=== PATIENT | female | born 1965 ===

== ENCOUNTER 2019-06-06 15:30 | Emergency (ER) | payer MEDICARE, MEDICAID ==
[2019-06-06 16:07] VITALS: BP 127/61
--- NOTE | 2019-06-06 16:09 | UC ---
Lower Extremity/Ankle HPI - HPI Summary HPI Summary: 53 y/o female presents to the urgent care accompany by Caregiver Alyssia. Pt states she has Hx of Muscular Dystrophy and she usually walks w/ the help of a walker. On Saturday06/02/2019 she was trying to stand up at home from chair and started to walk w/ the walker when her RT foot gave out and she fell and twisted her foot. She though it was going to get better w/ the days since it has happened in the past, but since yesterday her foot is bruise and more swollen. She is unable to stand up due to pain. Pain at rest is 0/10, but w/ walking is 9/10. She denies any numbness or tingling sensation over her lower extremity, calf pain, dizziness, [place], SOB, chest pain, abdominal pain, N/V/D - History of Current Complaint Chief Complaint: UCLowerExtremity Stated Complaint: RIGHT FOOT INJURY Time Seen by Provider: 06/06/19 16:07 Hx Obtained From: Patient Hx Last Menstrual Period: none Onset/Duration: Gradual Onset, Lasting Days - 4 days, Still Present, Worse Since - yesterday w/ moderate swelling and unable to walk Severity Initially: Moderate Severity Currently: Moderate Pain Intensity: 9 - w/ walking. 0/10 at rest Pain Scale Used: 0-10 Numeric Aggravating Factor(s): Standing, Ambulation Alleviating Factor(s): Rest, OTC Meds - aspirin Able to Bear Weight: No - Risk Factors Gout Risk Factors: Negative DVT Risk Factors: Negative Septic Arthritis Risk Factor: Negative - Allergies/Home Medications Allergies/Adverse Reactions: Allergies Allergy/AdvReac Type Severity Reaction Status Date / Time No Known Allergies Allergy Verified 06/06/19 16:07 Home Medications: Home Medications Acetaminophen [Tylenol Extra Strength] 2 tab PO Q4H PRN 06/06/19 [History Confirmed 06/06/19] Aspirin [Aspirin EC] 81 mg PO DAILY 06/06/19 [History Confirmed 06/06/19] Escitalopram * [Lexapro 10 mg (NF)] 10 mg PO DAILY 06/06/19 [History Confirmed 06/06/19] LoraTADine TAB(NF) [Claritin 10 MG TAB(NF)] 10 mg PO DAILY PRN 06/06/19 [ History Confirmed 06/06/19] Omeprazole CAP (NF) [Prilosec CAP* 20 MG] 20 mg PO DAILY 06/06/19 [History Confirmed 06/06/19] PMH/Surg Hx/FS Hx/Imm Hx Previously Healthy: Yes Cardiovascular History: Myocardial Infarction - 2017 GI/ History: Gastroesophageal Reflux Other Neurological History: Muscular dystrophy Psychological History: Depression - Surgical History Surgical History: Yes Surgery Procedure, Year, and Place: cardiac cath 2017-pt reports was normal. 2 c-sections - Family History Known Family History: Positive: Unknown - Pt denies FMHX - Social History Occupation: Disabled Lives: With Family Alcohol Use: None Substance Use Type: None Smoking Status (MU): Never Smoked Tobacco Review of Systems All Other Systems Reviewed And Are Negative: Yes Constitutional: Positive: Negative Skin: Positive: Bruising - dorsal side of the RT foot s/p injury Eyes: Positive: Negative ENT: Positive: Negative Respiratory: Positive: Negative Cardiovascular: Positive: Negative Gastrointestinal: Positive: Negative Genitourinary: Positive: Negative Motor: Positive: Negative Neurovascular: Positive: Negative Musculoskeletal: Positive: Decreased ROM - RT foot and ankle, Other: - RT foot and ankle pain and swelling s/p injury Neurological: Positive: Negative Psychological: Positive: Negative Is Patient Immunocompromised?: No Physical Exam - Summary Physical Exam Summary: Vital Signs Reviewed: Yes General : well developed, well nourished female w/o any apparent distress sitting in her wheel chair Eyes: Positive: Conjunctiva Clear - PERRLA, EOMI ENT: Positive: Normal ENT inspection, Hearing grossly normal, Pharynx normal, TMs normal Neck: Positive: Supple, Nontender, No Lymphadenopathy Respiratory: Positive: Chest non-tender, Lungs clear, Normal breath sounds, No respiratory distress Cardiovascular: Positive: RRR, No Murmur, Pulses Normal Abdomen Description: Positive: Nontender, No Organomegaly, Soft. Negative: CVA Tenderness (R), CVA Tenderness (L) Bowel Sounds: Positive: Present Musculoskeletal: Positive: Strength Intact, ROM Intact, No Edema,RT Foot/Toes: Pt is able unable to bear weight due to pain. RT foot :No surface trauma, ecchymosis, erythema, lesions, ulcers or break in skin integrity. The R foot is without obvious asymmetry or deformity when compared to the L foot. No bony step -off, No tenderness to palpation over toes, point tenderness over the dorsal side of mid foot and base of the 4th and 5th metatarsal and sole at the same level w. moderate swelling, no tenderness of hindfoot, Decrease plantar/ dorsiflexion, inversion/eversion due to pain. Distal motor and neurovascular status are intact. RT Ankle: R ankle is without obvious asymmetry or deformity when compared to the L ankle. Pt can flex/ext, invert/shannan. No obvious surface trauma, ecchymosis, positive soft tissue swelling on laterla malleolus. No bony tenderness to palpation over the medial or lateral malleolus. good dorsalis pedis and posterior tibial pulses and sensation to light touch normal. Talar tilt test is negative for ligament laxity to valgus or varus stress. Negative anterior drawer. Peroneal nerve is intact with strong eversion and plantar flexion. Neurological Exam: Normal Psychological Exam: Normal Skin Exam: Normal Triage Information Reviewed: Yes Vital Signs: Initial Vital Signs Temp 98.1 F 06/06/19 15:57 Pulse 65 06/06/19 15:57 Resp 17 06/06/19 15:57 BP 127/61 06/06/19 15:57 Pulse Ox 95 06/06/19 15:57 Lower Extremity Course/Dx - Course Course Of Treatment: 53 y/o female presents to the urgent care accompany by Caregiver Alyssia. Pt states she has Hx of Muscular Dystrophy and she usually walks w/ the help of a walker. On Saturday06/02/2019 she was trying to stand up at home from chair and started to walk w/ the walker when her RT foot gave out and she fell and twisted her foot. She though it was going to get better w/ the days since it has happened in the past, but since yesterday her foot is bruise and more swollen. She is unable to stand up due to pain. Pain at rest is 0/10, but w/ walking is 9/10. She denies any numbness or tingling sensation over her lower extremity, calf pain, dizziness, [place], SOB, chest pain, abdominal pain, N/V/D. Hx obtained. RT foot and ankle X-ray ordered, REPORT AND IMPRESSION: #. Bone density appears markedly decreased throughout. Negative for fracture or dislocation at the ankle or foot. #. Degenerative or neuropathic arthropathy noted most prominent at the first metatarsal phalangeal joint moderate in severity. #. Diffuse soft tissue swelling. No subcutaneous emphysema or conspicuous foreign body evident as per radiologist. Probably Rt foot sprain. Pt 's foot immobilized with a CAM boot by the nurse. Pt Rx Ibuprofen PO as directed below. Advised RICE, and take Ibuprofen PO for pain, strongly advised to f/u with Orthopedic DR Edmonds for further evaluation and treatment due to her Hx of Muscular dystrophy. Also advised to f/u wl her PCP in 2-3 days for further management of possible osteoporosis and neuroapthic arthropathy. 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 - Differential Dx/Diagnosis Differential Diagnosis/HQI/PQRI: Arthritis, Contusion, Dislocation, Fracture ( Closed), Sprain, Strain, Tendonitis Provider Diagnosis: Injury of right foot including toes, Right foot sprain, Neuropathic arthropathy Discharge ED - Sign-Out/Discharge Documenting (check all that apply): Patient Departure - D/C home All imaging exams completed and their final reports reviewed: Yes - Discharge Plan Condition: Stable Disposition: HOME Prescriptions: Ibuprofen TAB* [Motrin TAB* 600 MG] 600 mg PO Q6H PRN #30 tab PRN Reason: moderate pain Patient Education Materials: Foot Sprain (ED) Referrals: Meghna Wylie MD [Primary Care Provider] - 3 Days Juan Pablo Edmonds MD [Medical Doctor] - 2 Days Additional Instructions: 1-Please take Ibuprofen 600mg PO q6-8hrs orn after meals as directed to alleviate pain and swelling. 2-Please apply ice, keep your ankle immobilized with the CAM boot. Avoid too much weight bearing using the walker. Elevate your ankle 3- Please f/u with Orthopedic DR Edmonds in 3 days for further evaluation and treatment. 4- Please f/u w/ your PCP for further management on your Neuroapthy and possible osteoporosis - Billing Disposition and Condition Condition: STABLE Disposition: Home
== END 2019-06-06 18:13 | disposition home or self-care (01) ==
LOC: UCCORT 15:30
DX: S99.921A Unspecified injury of right foot, initial encounter (principal); S93.601A Unspecified sprain of right foot, initial encounter; W19.XXXA Unspecified fall, initial encounter; Y93.01 Activity, walking, marching and hiking; Y92.009 Unspecified place in unspecified non-institutional (private) residence as the place of occurrence of the external cause; M14.60 Charcot's joint, unspecified site; G71.00 Muscular dystrophy, unspecified; I25.2 Old myocardial infarction; K21.9 Gastro-esophageal reflux disease without esophagitis; F32.9 Major depressive disorder, single episode, unspecified
CPT/HCPCS: 99213; G0463